=== PATIENT | female | born 1985 | race Caucasian/White ===

== ENCOUNTER → 2020-01-19 15:12 | Outpatient (BNVA) | payer OTHER, SELFPAY | PROVIDERS: Family Provider Family Medicine; PCP Family Medicine; Visit Provider Nurse Practitioner Family | DX: Z11.59 Encounter for screening for other viral diseases (principal) | CPT/HCPCS: 87635 ==

== ENCOUNTER 2020-05-09 08:00 | Outpatient (CLI) | payer OTHER, SELFPAY ==
[2020-05-09] MEDS: iohexol 300 mg/mL 100 mL Btl IV (08:36)
--- NOTE | 2020-05-09 09:00 | CT_ITS ---
WS: [id number] CT ABDOMEN AND PELVIS WITH AND WITHOUT CONTRAST HISTORY: LESION OF BLADDER TECHNIQUE: Unenhanced 5 mm axial imaging first performed through the abdomen. Post contrast imaging t hrough the abdomen and pelvis. Oral contrast has not been provided. Sagittal and coronal reformats a re submitted. All CT scans at [facility] use at least one of these dose optimization tech niques: automated exposure control; mA and/or kV adjustment per patient size (includes targeted exams where dose is matched to clinical indication); or iterative reconstruction. CONTRAST: Omnipaque 300; 95 mL IV. DLP: 858.86 mGy.cm COMPARISON: None available. Granulomata at the lung bases. Heart is not enlarged. Small hiatal hernia. Liver is normal size. Normal size spleen with granulomata. Normal gallbladder and pancreas. Negative aorta and adrenal glands. There is no ascites or adenopathy. RIGHT kidney: Normal size kidney with no calcifications. Small extrarenal pelvis. Incomplete contrast distention of the ureter on the delayed imaging but no filling defects are identified. LEFT kidney: Normal size kidney. No masses or calcifications. No obstruction. No uroepithelial fillin g defects. Normal size ureter is incompletely distended with contrast. Urinary bladder: On the delayed imaging there is moderate distention of the bladder. There are no flor ling defects appreciated on this examination. No GI tract obstruction. The appendix is normal. No free fluid or adenopathy in the pelvis. Uterus is slightly retroflexed. RIGHT ovarian cyst with a maximum diameter of 2.[address]/CT abdomen pelvis wo/w [id number] IMPRESSION: 1. No renal obstruction, calcification or uroepithelial lesions identified. 2. No bladder lesions identified. 3. Small RIGHT ovarian cyst. 4. Prior granulomatous disease.
== END 2020-05-09 08:01 | disposition home or self-care (01) ==
LOC: RAD 08:05
PROVIDERS: PCP Family Medicine; Visit Provider Urology
DX: N32.9 Bladder disorder, unspecified (principal); N83.201 Unspecified ovarian cyst, right side
CPT/HCPCS: 74178; 81003

== ENCOUNTER → 2020-05-18 12:31 | Outpatient (BNVA) | payer OTHER, SELFPAY | PROVIDERS: PCP Family Medicine; Visit Provider Nurse Practitioner | DX: Z20.822 Contact with and (suspected) exposure to COVID-19 (principal) | CPT/HCPCS: 87635 ==